=== PATIENT | male | born 1965 | race Caucasian/White ===

== ENCOUNTER 2020-02-20 23:28 | Inpatient (IN) | payer MEDICAID, OTHER ==
[~2020-02-20] VITALS: Ht 175.3 cm; Wt 133.8 kg
[2020-02-20] MEDS ORDERED: SODIUM CHLORIDE 0.9% 2,500 ML IV ONE (23:45)
[2020-02-21] VITALS (17 sets, daily range): BP systolic 78–148; BP diastolic 57–105
[2020-02-21 00:40] LABS: CHLORIDE 106 mEq/L (98-107)
[2020-02-21 00:41] LABS: INR 1.2; PROTHROMBIN TIME 12.8 sec (9.6-11.0)
[2020-02-21 00:47] LABS: CLARITY URINE CLEAR (CLEAR); COLOR URINE DARK YELLOW (YELLOW); KETONES URINE NEGATIVE (NEGATIVE); LEUKOCYTE ESTERASE URINE TRACE (NEGATIVE); NITRITE URINE NEGATIVE (NEGATIVE); OCCULT BLOOD URINE TRACE (NEGATIVE); PH URINE 5.5 (4.5-8.0); PROTEIN URINE 4+ (NEGATIVE); SPECIFIC GRAVITY URINE 1.027 (1.005-1.030)
[2020-02-21 00:57] LABS: BASOPHILS % 0.7 % (0.0-2.0); EOSINOPHILS % 5.9 % (0.0-5.0); HEMATOCRIT. 30.8 % (42.0-52.0); HEMOGLOBIN. 9.4 g/dL (14.0-18.0); LYMPHOCYTES % 11.9 % (20.0-50.0); MEAN CORPUSCULAR HEMOGLOBIN 24.9 pg (28.0-32.0); MEAN CORPUSCULAR VOLUME 81.7 fL (80.0-94.0); MEAN PLATELET VOLUME 7.6 fl (7.4-10.4); MONOCYTES % 9.8 % (2.0-8.0); NEUTROPHILS % 71.7 % (40.0-76.0); PLATELET 306 x1000/uL (130-400); RED BLOOD CELL COUNT 3.78 mill/uL (4.7-6.1)
[2020-02-21 03:39] LABS: *AMPHETAMINES SCREEN URINE NEGATIVE (NEGATIVE); *BARBITURATES SCREEN URINE NEGATIVE (NEGATIVE); *BENZODIAZEPINES SCREEN URINE NEGATIVE (NEGATIVE); *COCAINE SCREEN URINE NEGATIVE (NEGATIVE); METHADONE URINE SCREEN NEGATIVE (NEGATIVE); OPIATES URINE SCREEN NEGATIVE (NEGATIVE)
[2020-02-21 03:40] LABS: CANNABINOID URINE SCREEN PRESUMTIVE POSITIVE (NEGATIVE); PHENCYCLIDINE URINE SCREEN NEGATIVE (NEGATIVE)
[2020-02-21] MEDS ORDERED: FUROSEMIDE 100MG/10ML VIAL IVP ONE (05:15)
[2020-02-21] MEDS ORDERED: NOREPINEPHRINE 4MG/250ML PMX 250 ML IV PRN (09:30)
[2020-02-21] MEDS ORDERED: ETOMIDATE 2MG/ML 10ML VIAL IV ONE ×2 (09:45→09:54)
[2020-02-21] MEDS ORDERED: SUCCINYLCHOLINE CHLORIDE 200MG/10ML IV ONE ×2 (09:45→09:54)
[2020-02-21] MEDS ORDERED: PROPOFOL 10MG/ML 100ML 100 ML IV ONE (09:45)
[2020-02-21] MEDS ORDERED: CEFTRIAXONE 1 G PREMIX 50 ML IV SCH (11:00)
[2020-02-21] MEDS ORDERED: ENOXAPARIN 40MG/0.4ML SYR SUBCUT SCH (11:00)
[2020-02-21] MEDS: AZITHROMYCIN 500 MG TABLET PO SCH (11:00)
[2020-02-21] MEDS ORDERED: IPRATROPIUM/ALBUTEROL 0.5-3(2.5)MG/3ML NEB HHN SCH (12:00)
[2020-02-21] MEDS ORDERED: IPRATROPIUM/ALBUTEROL 0.5-3(2.5)MG/3ML NEB HHN PRN (12:00)
[2020-02-21] MEDS ORDERED: VANCOMYCIN 2,000 MG in DEXT 5% WATER 500 ML IV NR (12:00)
[2020-02-21] MEDS: ENOXAPARIN 40MG/0.4ML SYR SUBCUT SCH (12:17)
[2020-02-21 12:47] LABS: BG BASE EXCESS -3.7 mmol/L (-2.0-2.0); BG CARBOXYHEMOGLOBIN 0.7 % (0.5-1.5); BG DEOXYHEMOGLOBIN 0.3 % (0.0-5.0); BG FRACTION INSPIRED OXYGEN 100; BG HCO3 ACT 24.6 mmol/L (22.0-26.0); BG METHEMOGLOBIN 0.3 % (0.0-1.5); BG OXYGEN SATURATION 99.7 % (92.0-98.5); BG OXYHEMOGLOBIN 98.7 % (94.0-97.0); BG PCO2 61.6 mmHg (35.0-45.0); BG PH 7.219 (7.350-7.450); BG PO2 380.1 mmHg (75.0-100.0); BG SAMPLE SITE RIGHT RADIAL; BG TIDAL VOLUME(mL) 500 mL; BG TOTAL HEMOGLOBIN 10.6 g/dL (12.0-18.0); BG VENT MODE VENT - A/C; BG VENT RATE 16 set
[2020-02-21] MEDS ORDERED: NOREPINEPHRINE 4 MG in DEXT 5% WATER 246 ML IV PRN (16:00)
[2020-02-21] MEDS: PROPOFOL 10MG/ML 100ML 100 ML IV PRN (20:15)
[2020-02-22] VITALS (90 sets, daily range): BP systolic 77–142; BP diastolic 39–97
[2020-02-22] MEDS ORDERED: VANCOMYCIN 1 G PREMIX 200 ML IV SCH
[2020-02-22] MEDS: ACETYLCYSTEINE 100MG/ML 10% VIAL 4ML INH SCH ×2 (00:10→13:35)
[2020-02-22] MEDS: ENOXAPARIN 40MG/0.4ML SYR SUBCUT SCH ×3 (00:39→20:19)
[2020-02-22 05:49] LABS: HEMATOCRIT. 32.8 % (42.0-52.0); MEAN CORPUSCULAR HEMOGLOBIN 24.9 pg (28.0-32.0); MEAN CORPUSCULAR VOLUME 81.7 fL (80.0-94.0); MEAN PLATELET VOLUME 7.8 fl (7.4-10.4); PLATELET 260 x1000/uL (130-400); RED BLOOD CELL COUNT 4.02 mill/uL (4.7-6.1); RED CELL DISTRIBUTION WIDTH 19.8 % (11.6-14.6)
[2020-02-22 06:01] LABS: CHLORIDE 105 mEq/L (98-107)
[2020-02-22] MEDS: NOREPINEPHRINE 4 MG in DEXT 5% WATER 246 ML IV PRN ×2 (07:03→23:34)
[2020-02-22] MEDS: PROPOFOL 10MG/ML 100ML 100 ML IV PRN ×3 (07:04→23:31)
[2020-02-22] MEDS: AZITHROMYCIN 500 MG TABLET PO SCH (08:07)
[2020-02-22] MEDS: PANTOPRAZOLE SODIUM 40 MG/VIAL IV SCH (08:07)
[2020-02-22 09:30] LABS: BG BASE EXCESS -1.5 mmol/L (-2.0-2.0); BG CARBOXYHEMOGLOBIN 0.6 % (0.5-1.5); BG DEOXYHEMOGLOBIN 1.3 % (0.0-5.0); BG FRACTION INSPIRED OXYGEN 40; BG METHEMOGLOBIN 0.2 % (0.0-1.5); BG OXYGEN SATURATION 98.7 % (92.0-98.5); BG OXYHEMOGLOBIN 97.9 % (94.0-97.0); BG PCO2 43.6 mmHg (35.0-45.0); BG PH 7.358 (7.350-7.450); BG PO2 131.8 mmHg (75.0-100.0); BG SAMPLE SITE RIGHT RADIAL; BG TIDAL VOLUME(mL) 500 mL; BG TOTAL HEMOGLOBIN 10.6 g/dL (12.0-18.0); BG VENT MODE VENT - A/C; BG VENT RATE 18 set
[2020-02-22 09:58] LABS: PLATELET ESTIMATE NORMAL
[2020-02-22] MEDS ORDERED: VANCOMYCIN 750 MG PREMIX 150 ML IV SCH (10:00)
[2020-02-22] MEDS ORDERED: CEFTRIAXONE 1,000 MG in DEXTROSE 5% WATER 50 ML IV SCH (10:00)
[2020-02-22] MEDS ORDERED: MAGNESIUM 2 G PREMIX 50 ML IV NR (13:00)
[2020-02-22] MEDS: MIDODRINE HCL 5MG TABLET PO SCH ×2 (13:34→16:23)
[2020-02-22] MEDS: IPRATROPIUM/ALBUTEROL 0.5-3(2.5)MG/3ML NEB HHN SCH ×3 (13:35→19:50)
[2020-02-22] MEDS: PIPERACILLIN/TAZOBACTAM 3.375 G in DEXT 5% WATER 100 ML IV SCH ×2 (16:23→20:19)
[2020-02-22] MEDS: ONDANSETRON HCL 4MG/2ML INJ IV PRN (20:20)
[2020-02-23] VITALS (12 sets, daily range): BP systolic 97–111; BP diastolic 50–74
[2020-02-23] MEDS: ACETYLCYSTEINE 100MG/ML 10% VIAL 4ML INH SCH ×3 (00:05→15:57)
[2020-02-23] MEDS: IPRATROPIUM/ALBUTEROL 0.5-3(2.5)MG/3ML NEB HHN SCH ×6 (00:10→20:30)
[2020-02-23] MEDS: PIPERACILLIN/TAZOBACTAM 3.375 G in DEXT 5% WATER 100 ML IV SCH ×4 (03:20→21:49)
[2020-02-23] MEDS: PROPOFOL 10MG/ML 100ML 100 ML IV PRN ×4 (03:37→21:52)
[2020-02-23 05:54] LABS: BASOPHILS % 0.7 % (0.0-2.0); EOSINOPHILS % 5.5 % (0.0-5.0); HEMATOCRIT. 28.6 % (42.0-52.0); HEMOGLOBIN. 9.1 g/dL (14.0-18.0); LYMPHOCYTES % 8.9 % (20.0-50.0); MEAN CORPUSCULAR HEMOGLOBIN 25.2 pg (28.0-32.0); MEAN CORPUSCULAR VOLUME 79.5 fL (80.0-94.0); MEAN PLATELET VOLUME 8.1 fl (7.4-10.4); MONOCYTES % 9.4 % (2.0-8.0); NEUTROPHILS % 75.5 % (40.0-76.0); PLATELET 297 x1000/uL (130-400); RED BLOOD CELL COUNT 3.59 mill/uL (4.7-6.1); RED CELL DISTRIBUTION WIDTH 20.1 % (11.6-14.6)
[2020-02-23] MEDS ORDERED: VANCOMYCIN 1,750 MG in DEXT 5% WATER 500 ML IV SCH (09:00)
[2020-02-23 09:27] LABS: BG BASE EXCESS -0.6 mmol/L (-2.0-2.0); BG CARBOXYHEMOGLOBIN 0.4 % (0.5-1.5); BG DEOXYHEMOGLOBIN 1.2 % (0.0-5.0); BG FRACTION INSPIRED OXYGEN 40; BG HCO3 ACT 23.8 mmol/L (22.0-26.0); BG METHEMOGLOBIN 0.4 % (0.0-1.5); BG OXYGEN SATURATION 98.8 % (92.0-98.5); BG PCO2 38.1 mmHg (35.0-45.0); BG PH 7.414 (7.350-7.450); BG PO2 140.5 mmHg (75.0-100.0); BG SAMPLE SITE LEFT RADIAL; BG TIDAL VOLUME(mL) 500 mL; BG TOTAL HEMOGLOBIN 9.3 g/dL (12.0-18.0); BG VENT MODE VENT - A/C; BG VENT RATE 18 set
[2020-02-23] MEDS: PANTOPRAZOLE SODIUM 40 MG/VIAL IV SCH (09:28)
[2020-02-23] MEDS: ENOXAPARIN 40MG/0.4ML SYR SUBCUT SCH ×2 (09:32→21:48)
[2020-02-23] MEDS: MIDODRINE HCL 5MG TABLET PO SCH ×3 (09:33→17:00)
[2020-02-23] MEDS: AZITHROMYCIN 500 MG TABLET PO SCH (09:33)
[2020-02-23] MEDS: FUROSEMIDE 40MG/4ML VIAL IVP SCH (12:56)
[2020-02-23] MEDS: NYSTATIN POWDER 15GM TOP SCH (21:48)
[2020-02-23] MEDS: ONDANSETRON HCL 4MG/2ML INJ IV PRN (21:53)
[2020-02-24] VITALS (60 sets, daily range): BP systolic 69–134; BP diastolic 24–73
[2020-02-24] MEDS: IPRATROPIUM/ALBUTEROL 0.5-3(2.5)MG/3ML NEB HHN SCH ×6 (00:05→22:01)
[2020-02-24] MEDS: PIPERACILLIN/TAZOBACTAM 3.375 G in DEXT 5% WATER 100 ML IV SCH ×4 (03:36→21:12)
[2020-02-24] MEDS: PROPOFOL 10MG/ML 100ML 100 ML IV PRN ×4 (03:41→21:14)
[2020-02-24] MEDS ORDERED: MAGNESIUM 2 G PREMIX 50 ML IV NR (05:00)
[2020-02-24 05:51] LABS: BASOPHILS % 1.1 % (0.0-2.0); EOSINOPHILS % 4.1 % (0.0-5.0); HEMATOCRIT. 29.3 % (42.0-52.0); HEMOGLOBIN. 9.2 g/dL (14.0-18.0); LYMPHOCYTES % 10.8 % (20.0-50.0); MEAN CORPUSCULAR HEMOGLOBIN 24.5 pg (28.0-32.0); MEAN CORPUSCULAR VOLUME 78.3 fL (80.0-94.0); MEAN PLATELET VOLUME 7.8 fl (7.4-10.4); MONOCYTES % 10.8 % (2.0-8.0); NEUTROPHILS % 73.2 % (40.0-76.0); PLATELET 279 x1000/uL (130-400); RED BLOOD CELL COUNT 3.74 mill/uL (4.7-6.1); RED CELL DISTRIBUTION WIDTH 19.9 % (11.6-14.6)
[2020-02-24] MEDS: ACETYLCYSTEINE 100MG/ML 10% VIAL 4ML INH SCH ×2 (08:31→16:30)
[2020-02-24] MEDS: PANTOPRAZOLE SODIUM 40 MG/VIAL IV SCH (08:38)
[2020-02-24] MEDS: FUROSEMIDE 40MG/4ML VIAL IVP SCH (08:38)
[2020-02-24] MEDS: AZITHROMYCIN 500 MG TABLET PO SCH (08:39)
[2020-02-24] MEDS: MIDODRINE HCL 5MG TABLET PO SCH ×3 (08:39→17:35)
[2020-02-24] MEDS: ENOXAPARIN 40MG/0.4ML SYR SUBCUT SCH ×2 (08:39→21:12)
[2020-02-24] MEDS: NOREPINEPHRINE 4 MG in DEXT 5% WATER 246 ML IV PRN (08:46)
[2020-02-24 08:55] LABS: BG BASE EXCESS 1.1 mmol/L (-2.0-2.0); BG CARBOXYHEMOGLOBIN 0.4 % (0.5-1.5); BG FRACTION INSPIRED OXYGEN 40; BG HCO3 ACT 24.6 mmol/L (22.0-26.0); BG METHEMOGLOBIN 0.2 % (0.0-1.5); BG OXYHEMOGLOBIN 98.4 % (94.0-97.0); BG PCO2 34.7 mmHg (35.0-45.0); BG PH 7.469 (7.350-7.450); BG PO2 141.3 mmHg (75.0-100.0); BG SAMPLE SITE RIGHT RADIAL; BG TIDAL VOLUME(mL) 500 mL; BG VENT MODE VENT - A/C; BG VENT RATE 18 set
[2020-02-24] MEDS ORDERED: FLUCONAZOLE 200 MG/100 ML IV SCH (10:45)
[2020-02-24] MEDS ORDERED: PERMETHRIN 5% CREAM 60GM TOP NR (11:00)
[2020-02-24] MEDS: METOCLOPRAMIDE HCL 10MG/2ML VIAL IV SCH ×2 (12:25→17:35)
[2020-02-24] MEDS ORDERED: FLUCONAZOLE 100MG/50ML in BAG IV SCH (13:00)
[2020-02-24] MEDS: NYSTATIN POWDER 15GM TOP SCH ×2 (15:16→21:00)
[2020-02-24] MEDS ORDERED: CALCIUM GLUCONATE 100MG/ML 10ML VIAL IV NR (15:30)
[2020-02-24] MEDS ORDERED: CALCIUM GLUCONATE 1,000 MG in DEXT 5% WATER 90 ML IV ONE (17:30)
[2020-02-25] VITALS (72 sets, daily range): BP systolic 80–129; BP diastolic 55–86
[2020-02-25] MEDS: METOCLOPRAMIDE HCL 10MG/2ML VIAL IV SCH ×5 (00:25→23:28)
[2020-02-25] MEDS: ACETYLCYSTEINE 100MG/ML 10% VIAL 4ML INH SCH ×4 (00:41→16:23)
[2020-02-25] MEDS: IPRATROPIUM/ALBUTEROL 0.5-3(2.5)MG/3ML NEB HHN SCH ×6 (01:03→20:06)
[2020-02-25] MEDS: PROPOFOL 10MG/ML 100ML 100 ML IV PRN ×3 (05:21→17:06)
[2020-02-25] MEDS: PIPERACILLIN/TAZOBACTAM 3.375 G in DEXT 5% WATER 100 ML IV SCH ×4 (05:22→21:40)
[2020-02-25 06:41] LABS: BASOPHILS % 1.7 % (0.0-2.0); EOSINOPHILS % 7.9 % (0.0-5.0); HEMATOCRIT. 27.2 % (42.0-52.0); HEMOGLOBIN. 8.6 g/dL (14.0-18.0); LYMPHOCYTES % 14.3 % (20.0-50.0); MEAN CORPUSCULAR HEMOGLOBIN 24.8 pg (28.0-32.0); MEAN CORPUSCULAR VOLUME 78.2 fL (80.0-94.0); MEAN PLATELET VOLUME 7.8 fl (7.4-10.4); MONOCYTES % 11.6 % (2.0-8.0); NEUTROPHILS % 64.5 % (40.0-76.0); PLATELET 295 x1000/uL (130-400); RED BLOOD CELL COUNT 3.48 mill/uL (4.7-6.1); RED CELL DISTRIBUTION WIDTH 19.2 % (11.6-14.6)
[2020-02-25] MEDS: FUROSEMIDE 40MG/4ML VIAL IVP SCH (09:04)
[2020-02-25] MEDS: PANTOPRAZOLE SODIUM 40 MG/VIAL IV SCH (09:04)
[2020-02-25] MEDS: ENOXAPARIN 40MG/0.4ML SYR SUBCUT SCH ×2 (09:05→20:37)
[2020-02-25] MEDS: MIDODRINE HCL 5MG TABLET PO SCH ×3 (09:05→16:40)
[2020-02-25] MEDS: NYSTATIN POWDER 15GM TOP SCH ×2 (09:06→20:38)
[2020-02-25] MEDS ORDERED: VANCOMYCIN 1500MG in DEXTROSE 5% WATER 250ML IV SCH (11:00)
[2020-02-25] MEDS: NOREPINEPHRINE 4 MG in DEXT 5% WATER 246 ML IV PRN (11:03)
[2020-02-25 11:45] LABS: BG CARBOXYHEMOGLOBIN 0.3 % (0.5-1.5); BG DEOXYHEMOGLOBIN 1.6 % (0.0-5.0); BG FRACTION INSPIRED OXYGEN 30; BG HCO3 ACT 29.5 mmol/L (22.0-26.0); BG METHEMOGLOBIN 0.3 % (0.0-1.5); BG OXYGEN SATURATION 98.4 % (92.0-98.5); BG OXYHEMOGLOBIN 97.8 % (94.0-97.0); BG PCO2 48.2 mmHg (35.0-45.0); BG PH 7.404 (7.350-7.450); BG PO2 127.8 mmHg (75.0-100.0); BG SAMPLE SITE LEFT RADIAL; BG TIDAL VOLUME(mL) 500 mL; BG TOTAL HEMOGLOBIN 10.6 g/dL (12.0-18.0); BG VENT MODE VENT - A/C; BG VENT RATE 14 set
[2020-02-25] MEDS ORDERED: FLUCONAZOLE 200 MG/100ML BAG 100 ML IV SCH (13:00)
[2020-02-25] MEDS ORDERED: SODIUM CHLORIDE 0.9% 500 ML IV SCH (13:45)
[2020-02-25] MEDS ORDERED: ACETAZOLAMIDE SODIUM 500MG/VIAL IV NR (15:00)
[2020-02-26] VITALS (47 sets, daily range): BP systolic 81–115; BP diastolic 50–90
[2020-02-26] MEDS: IPRATROPIUM/ALBUTEROL 0.5-3(2.5)MG/3ML NEB HHN SCH ×5 (00:41→16:26)
[2020-02-26] MEDS: PIPERACILLIN/TAZOBACTAM 3.375 G in DEXT 5% WATER 100 ML IV SCH ×4 (03:20→21:05)
[2020-02-26] MEDS: PROPOFOL 10MG/ML 100ML 100 ML IV PRN (03:30)
[2020-02-26] MEDS: METOCLOPRAMIDE HCL 10MG/2ML VIAL IV SCH ×4 (05:04→23:38)
[2020-02-26 06:21] LABS: BASOPHILS % 1.9 % (0.0-2.0); EOSINOPHILS % 7.5 % (0.0-5.0); HEMATOCRIT. 31.9 % (42.0-52.0); HEMOGLOBIN. 10.2 g/dL (14.0-18.0); MEAN CORPUSCULAR HEMOGLOBIN 25.1 pg (28.0-32.0); MEAN CORPUSCULAR VOLUME 78.1 fL (80.0-94.0); MEAN PLATELET VOLUME 8.1 fl (7.4-10.4); MONOCYTES % 13.3 % (2.0-8.0); NEUTROPHILS % 55.3 % (40.0-76.0); PLATELET 184 x1000/uL (130-400); RED BLOOD CELL COUNT 4.09 mill/uL (4.7-6.1); RED CELL DISTRIBUTION WIDTH 20.1 % (11.6-14.6)
[2020-02-26] MEDS: ACETYLCYSTEINE 100MG/ML 10% VIAL 4ML INH SCH ×2 (08:26→16:26)
[2020-02-26] MEDS: PANTOPRAZOLE SODIUM 40 MG/VIAL IV SCH (09:00)
[2020-02-26] MEDS: ENOXAPARIN 40MG/0.4ML SYR SUBCUT SCH ×2 (09:00→21:05)
[2020-02-26] MEDS: NYSTATIN POWDER 15GM TOP SCH ×2 (09:00→21:06)
[2020-02-26] MEDS: FUROSEMIDE 40MG/4ML VIAL IVP SCH (09:00)
[2020-02-26] MEDS: MIDODRINE HCL 5MG TABLET PO SCH ×3 (09:00→17:41)
[2020-02-26 12:15] LABS: BG CARBOXYHEMOGLOBIN 0.4 % (0.5-1.5); BG DEOXYHEMOGLOBIN 1.5 % (0.0-5.0); BG FRACTION INSPIRED OXYGEN 30; BG HCO3 ACT 31.2 mmol/L (22.0-26.0); BG METHEMOGLOBIN 0.3 % (0.0-1.5); BG OXYGEN SATURATION 98.5 % (92.0-98.5); BG OXYHEMOGLOBIN 97.8 % (94.0-97.0); BG PCO2 48.6 mmHg (35.0-45.0); BG PH 7.425 (7.350-7.450); BG PO2 131.5 mmHg (75.0-100.0); BG PRESSURE SUPPORT 8; BG SAMPLE SITE LEFT RADIAL; BG TOTAL HEMOGLOBIN 9.5 g/dL (12.0-18.0); BG VENT MODE VENT - CPAP
[2020-02-27] VITALS (35 sets, daily range): BP systolic 83–134; BP diastolic 44–85
[2020-02-27] MEDS: IPRATROPIUM/ALBUTEROL 0.5-3(2.5)MG/3ML NEB HHN SCH ×5 (00:22→21:30)
[2020-02-27] MEDS: ACETYLCYSTEINE 100MG/ML 10% VIAL 4ML INH SCH ×2 (00:22→09:05)
[2020-02-27] MEDS: PIPERACILLIN/TAZOBACTAM 3.375 G in DEXT 5% WATER 100 ML IV SCH ×4 (04:24→21:19)
[2020-02-27] MEDS: METOCLOPRAMIDE HCL 10MG/2ML VIAL IV SCH ×3 (05:30→18:06)
[2020-02-27 05:47] LABS: EOSINOPHILS % 13.2 % (0.0-5.0); HEMATOCRIT. 27.4 % (42.0-52.0); HEMOGLOBIN. 8.4 g/dL (14.0-18.0); LYMPHOCYTES % 18.6 % (20.0-50.0); MEAN CORPUSCULAR HEMOGLOBIN 24.3 pg (28.0-32.0); MEAN CORPUSCULAR VOLUME 79.1 fL (80.0-94.0); MEAN PLATELET VOLUME 7.7 fl (7.4-10.4); MONOCYTES % 14.8 % (2.0-8.0); NEUTROPHILS % 52.4 % (40.0-76.0); PLATELET 220 x1000/uL (130-400); RED BLOOD CELL COUNT 3.46 mill/uL (4.7-6.1); RED CELL DISTRIBUTION WIDTH 19.9 % (11.6-14.6)
[2020-02-27] MEDS: FUROSEMIDE 40MG/4ML VIAL IVP SCH (09:26)
[2020-02-27] MEDS: ENOXAPARIN 40MG/0.4ML SYR SUBCUT SCH ×2 (09:27→21:18)
[2020-02-27] MEDS: PANTOPRAZOLE SODIUM 40 MG/VIAL IV SCH (09:27)
[2020-02-27] MEDS: MIDODRINE HCL 5MG TABLET PO SCH ×3 (09:28→18:07)
[2020-02-27] MEDS: NYSTATIN POWDER 15GM TOP SCH ×2 (09:58→21:19)
[2020-02-28] VITALS (13 sets, daily range): BP systolic 92–121; BP diastolic 47–75
[2020-02-28] MEDS: METOCLOPRAMIDE HCL 10MG/2ML VIAL IV SCH ×5 (00:54→23:40)
[2020-02-28] MEDS: IPRATROPIUM/ALBUTEROL 0.5-3(2.5)MG/3ML NEB HHN SCH ×6 (00:55→20:37)
[2020-02-28 06:39] LABS: BASOPHILS % 1.3 % (0.0-2.0); EOSINOPHILS % 11.1 % (0.0-5.0); HEMOGLOBIN. 8.7 g/dL (14.0-18.0); LYMPHOCYTES % 17.6 % (20.0-50.0); MEAN CORPUSCULAR HEMOGLOBIN 24.4 pg (28.0-32.0); MEAN CORPUSCULAR VOLUME 78.9 fL (80.0-94.0); MEAN PLATELET VOLUME 7.8 fl (7.4-10.4); MONOCYTES % 12.1 % (2.0-8.0); NEUTROPHILS % 57.9 % (40.0-76.0); PLATELET 209 x1000/uL (130-400); RED BLOOD CELL COUNT 3.55 mill/uL (4.7-6.1); RED CELL DISTRIBUTION WIDTH 20.2 % (11.6-14.6)
[2020-02-28] MEDS ORDERED: POTASSIUM CHLORIDE 20MEQ TABLET SR PO SCH (08:45)
[2020-02-28] MEDS: ENOXAPARIN 40MG/0.4ML SYR SUBCUT SCH ×2 (09:41→20:39)
[2020-02-28] MEDS: PANTOPRAZOLE SODIUM 40 MG/VIAL IV SCH (09:41)
[2020-02-28] MEDS: MIDODRINE HCL 5MG TABLET PO SCH ×3 (09:42→17:06)
[2020-02-28] MEDS: NYSTATIN POWDER 15GM TOP SCH ×2 (09:53→20:39)
[2020-02-28] MEDS ORDERED: VANCOMYCIN 1 G PREMIX 200 ML IV SCH (11:00)
[2020-02-29] VITALS (10 sets, daily range): BP systolic 96–132; BP diastolic 56–80
[2020-02-29] MEDS: IPRATROPIUM/ALBUTEROL 0.5-3(2.5)MG/3ML NEB HHN SCH ×6 (00:23→23:50)
[2020-02-29] MEDS: METOCLOPRAMIDE HCL 10MG/2ML VIAL IV SCH ×2 (05:07→12:09)
[2020-02-29 07:38] LABS: BASOPHILS % 0.8 % (0.0-2.0); EOSINOPHILS % 9.4 % (0.0-5.0); HEMATOCRIT. 28.3 % (42.0-52.0); HEMOGLOBIN. 8.7 g/dL (14.0-18.0); LYMPHOCYTES % 21.3 % (20.0-50.0); MEAN CORPUSCULAR HEMOGLOBIN 24.5 pg (28.0-32.0); MEAN CORPUSCULAR VOLUME 79.3 fL (80.0-94.0); MEAN PLATELET VOLUME 8.1 fl (7.4-10.4); MONOCYTES % 10.3 % (2.0-8.0); NEUTROPHILS % 58.2 % (40.0-76.0); PLATELET 237 x1000/uL (130-400); RED BLOOD CELL COUNT 3.57 mill/uL (4.7-6.1); RED CELL DISTRIBUTION WIDTH 20.1 % (11.6-14.6)
[2020-02-29] MEDS: PANTOPRAZOLE SODIUM 40 MG/VIAL IV SCH (08:12)
[2020-02-29] MEDS: MIDODRINE HCL 5MG TABLET PO SCH ×2 (08:13→12:12)
[2020-02-29] MEDS: ENOXAPARIN 40MG/0.4ML SYR SUBCUT SCH ×2 (08:14→21:15)
[2020-02-29] MEDS: NYSTATIN POWDER 15GM TOP SCH ×2 (08:15→21:15)
[2020-02-29] MEDS: ACETAMINOPHEN 325MG TABLET PO PRN (12:12)
[2020-02-29] MEDS ORDERED: CARV6.2548 MT (16:33)
[2020-02-29] MEDS ORDERED: LOSA25TA26 MT (16:33)
[2020-02-29] MEDS ORDERED: FURO-152 MT (16:33)
[2020-02-29] MEDS ORDERED: ALBU18HF2 IH (16:33)
[2020-02-29] MEDS: FERROUS SULFATE 325MG TABLET PO SCH (17:37)
[2020-02-29 17:38] LABS: TOTAL IRON BINDING CAPACITY 316 ug/dL (250-450)
[2020-02-29] MEDS: CARVEDILOL 6.25 MG TABLET PO SCH (21:14)
[2020-03-01] VITALS (11 sets, daily range): BP systolic 103–136; BP diastolic 18–75
[2020-03-01] MEDS: ACETAMINOPHEN 325MG TABLET PO PRN ×4 (01:12→21:24)
[2020-03-01] MEDS: CARVEDILOL 6.25 MG TABLET PO SCH ×2 (08:37→21:24)
[2020-03-01] MEDS: DOCUSATE SODIUM 250MG CAPSULE PO SCH (08:37)
[2020-03-01] MEDS: LOSARTAN POTASSIUM 25 MG TABLET PO SCH (08:37)
[2020-03-01] MEDS: FERROUS SULFATE 325MG TABLET PO SCH ×3 (08:38→18:29)
[2020-03-01] MEDS: NYSTATIN POWDER 15GM TOP SCH ×2 (08:38→21:25)
[2020-03-01] MEDS: ENOXAPARIN 40MG/0.4ML SYR SUBCUT SCH ×2 (08:38→21:25)
[2020-03-01] MEDS: PANTOPRAZOLE SODIUM 40 MG/VIAL IV SCH (08:38)
[2020-03-01] MEDS: IPRATROPIUM/ALBUTEROL 0.5-3(2.5)MG/3ML NEB HHN SCH ×2 (09:00→16:05)
[2020-03-02] VITALS (9 sets, daily range): BP systolic 119–144; BP diastolic 63–89
[2020-03-02] MEDS: IPRATROPIUM/ALBUTEROL 0.5-3(2.5)MG/3ML NEB HHN SCH ×3 (00:30→12:49)
[2020-03-02] MEDS: CARVEDILOL 6.25 MG TABLET PO SCH (09:31)
[2020-03-02] MEDS: FERROUS SULFATE 325MG TABLET PO SCH ×2 (09:31→13:19)
[2020-03-02] MEDS: ENOXAPARIN 40MG/0.4ML SYR SUBCUT SCH (09:31)
[2020-03-02] MEDS: DOCUSATE SODIUM 250MG CAPSULE PO SCH (09:32)
[2020-03-02] MEDS: LOSARTAN POTASSIUM 25 MG TABLET PO SCH (09:32)
[2020-03-02] MEDS: PANTOPRAZOLE SODIUM 40 MG/VIAL IV SCH (09:34)
[2020-03-02] MEDS: ACETAMINOPHEN 325MG TABLET PO PRN (09:40)
[2020-03-02] MEDS: NYSTATIN POWDER 15GM TOP SCH (11:03)
[2020-03-02] MEDS ORDERED: CARVEDILOL 12.5MG TABLET PO SCH (21:00)
== END 2020-03-02 19:15 | DRG 812 ==
LOC: ER 23:28 → MICUSO 02-21 04:29 → EDBEDREQ 02-21 04:30 → EDBEDREQDT 02-21 04:30 → EDBEDREQSVC 02-21 04:30 → EDBEDREQTM 02-21 04:30 → ENRESERV 02-21 07:29 → EDBEDREQTM 02-21 10:10 → EDBEDREQ 02-21 10:10 → EDBEDREQSVC 02-21 10:10 → ENRESERV 02-21 17:16 → CVICU 02-24 05:00 → 5EST 02-27 17:19
PROVIDERS: ADMIT Internal Medicine; ATTEND Internal Medicine
PROC: 5A1955Z Respiratory Ventilation, Greater than 96 Consecutive Hours (ICD-10-PCS; principal; 2020-02-21)
PROC: 0BH17EZ Insertion of Endotracheal Airway into Trachea, Via Natural or Artificial Opening (ICD-10-PCS; 2020-02-21)
PROC: 06HY33Z Insertion of Infusion Device into Lower Vein, Percutaneous Approach (ICD-10-PCS; 2020-02-21)
PROC: B54BZZA Ultrasonography of Right Lower Extremity Veins, Guidance (ICD-10-PCS; 2020-02-21)
DX: T39.311A Poisoning by propionic acid derivatives, accidental (unintentional), initial encounter (principal); A41.02 Sepsis due to Methicillin resistant Staphylococcus aureus; R65.21 Severe sepsis with septic shock; E43 Unspecified severe protein-calorie malnutrition; J96.02 Acute respiratory failure with hypercapnia; I50.43 Acute on chronic combined systolic (congestive) and diastolic (congestive) heart failure; J15.212 Pneumonia due to Methicillin resistant Staphylococcus aureus; J69.0 Pneumonitis due to inhalation of food and vomit; N17.9 Acute kidney failure, unspecified; N18.2 Chronic kidney disease, stage 2 (mild); G92 Toxic encephalopathy; E11.22 Type 2 diabetes mellitus with diabetic chronic kidney disease; D64.9 Anemia, unspecified; E66.01 Morbid (severe) obesity due to excess calories; E87.4 Mixed disorder of acid-base balance; Z96.611 Presence of right artificial shoulder joint; D72.1 Eosinophilia; B86 Scabies; F12.90 Cannabis use, unspecified, uncomplicated; Z20.828 Contact with and (suspected) exposure to other viral communicable diseases; I27.20 Pulmonary hypertension, unspecified; I36.1 Nonrheumatic tricuspid (valve) insufficiency; I13.0 Hypertensive heart and chronic kidney disease with heart failure and stage 1 through stage 4 chronic kidney disease, or unspecified chronic kidney disease; S43.004A Unspecified dislocation of right shoulder joint, initial encounter; X58.XXXA Exposure to other specified factors, initial encounter; I42.9 Cardiomyopathy, unspecified; T50.2X5A Adverse effect of carbonic-anhydrase inhibitors, benzothiadiazides and other diuretics, initial encounter; Z68.41 Body mass index [BMI] 40.0-44.9, adult; Z78.1 Physical restraint status; Y92.89 Other specified places as the place of occurrence of the external cause; Y93.89 Activity, other specified; Y99.8 Other external cause status
CPT/HCPCS: 36415; 36600; 71045; 73030; 80048; 80053; 80061; 80202; 80305; 80307; 80320; 80329; 81003; 82040; 82375; 82550; 82728; 82805; 82962; 83036; 83540; 83550; 83605; 83735; 83880; 84134; 84145; 84439; 84443; 84450; 84460; 84478; 84484; 85025; 85651; 86140; 87070; 87077; 92610; 93005; 93306; 94002; 94003; 94640; 97162; 97166; 97530; 99285; C9113; J0330; J0610; J0696; J1120; J1450; J1650; J1940; J2405; J2543; J2704; J2765; J3370; J3475; J3490; J7030; J7060; J7608; C9803-CS; G0480; U0003-CS

== ENCOUNTER 2020-07-06 21:02 | Inpatient (IN) | payer MEDICAID ==
[~2020-07-06] VITALS: Ht 177.8 cm; Wt 96.6 kg
[~2020-07-06 21:02] MED LIST: ALBU18HF2 IH; CARV6.2548 MT; FURO-152 MT; LOSA25TA26 MT
[2020-07-06] MEDS ORDERED: SODIUM CHLORIDE 0.9% 1,000 ML IV ONE ×2 (21:30→23:15)
[2020-07-06 22:34] LABS: BASOPHILS % 0.3 % (0.0-2.0); EOSINOPHILS % 1.2 % (0.0-5.0); HEMATOCRIT. 38.6 % (42.0-52.0); HEMOGLOBIN. 13.3 g/dL (14.0-18.0); LYMPHOCYTES % 9.7 % (20.0-50.0); MEAN CORPUSCULAR HEMOGLOBIN 32.2 pg (28.0-32.0); MEAN CORPUSCULAR VOLUME 93.7 fL (80.0-94.0); MONOCYTES % 11.7 % (2.0-8.0); NEUTROPHILS % 77.1 % (40.0-76.0); RED BLOOD CELL COUNT 4.12 mill/uL (4.7-6.1)
[2020-07-06 22:39] LABS: CHLORIDE 96 mEq/L (98-107)
[2020-07-06 22:54] LABS: PLATELET ESTIMATE NORMAL
[2020-07-06 22:55] LABS: MEAN PLATELET VOLUME 7.2 fl (7.4-10.4); PLATELET 163 x1000/uL (130-400)
[2020-07-07 00:50] LABS: CLARITY URINE CLEAR (CLEAR); COLOR URINE YELLOW (YELLOW); KETONES URINE NEGATIVE (NEGATIVE); LEUKOCYTE ESTERASE URINE TRACE (NEGATIVE); NITRITE URINE NEGATIVE (NEGATIVE); OCCULT BLOOD URINE NEGATIVE (NEGATIVE); PH URINE 5.5 (4.5-8.0); PROTEIN URINE 2+ (NEGATIVE); SPECIFIC GRAVITY URINE 1.017 (1.005-1.030)
[2020-07-07] MEDS ORDERED: CLONIDINE 0.1MG TABLET PO PRN (02:45)
[2020-07-07] MEDS ORDERED: ACETAMINOPHEN 325MG TABLET PO PRN ×2 (02:45)
[2020-07-07] MEDS ORDERED: DIPHENHYDRAMINE 50MG/ML VIAL IV PRN (02:45)
[2020-07-07] MEDS ORDERED: MAGNESIUM/ALUMINUM HYDROXIDE/SIMETHICONE 30ML UDC PO PRN (02:45)
[2020-07-07] MEDS ORDERED: CEFTRIAXONE 1 G PREMIX 50 ML IV SCH ×2 (03:00→21:00)
[2020-07-07] MEDS: SODIUM CHLORIDE 0.9% 1,000 ML IV SCH (03:21)
[2020-07-07] MEDS: PANTOPRAZOLE SODIUM 40 MG/VIAL IV SCH (10:56)
[2020-07-07] MEDS: ENOXAPARIN 40MG/0.4ML SYR SUBCUT SCH (11:12)
[2020-07-07] MEDS ORDERED: AZITHROMYCIN 500 MG in DEXT 5% WATER 250 ML IV SCH (12:00)
[2020-07-07] MEDS ORDERED: CARV12.545 MT (12:43)
[2020-07-07] MEDS ORDERED: GABA-531 MT (12:43)
[2020-07-07] MEDS ORDERED: RISP0.2514 PO (12:43)
[2020-07-07] MEDS ORDERED: ZOLP5TAB2 MT (12:43)
[2020-07-07] MEDS ORDERED: LORA-250 MT (12:43)
[2020-07-07] MEDS ORDERED: INTE30SY IM (12:43)
[2020-07-07] MEDS ORDERED: SENN-170 MT (12:43)
[2020-07-07] MEDS ORDERED: DULO30CA52 MT (12:43)
[2020-07-07] MEDS: HYDROCODONE/ACETAMINOPHEN 5/325MG TABLET PO PRN ×2 (13:07→23:13)
[2020-07-07] MEDS ORDERED: ZOLPIDEM TARTRATE 5MG TABLET PO PRN (21:00)
[2020-07-07 21:50] VITALS: BP 121/66
[2020-07-08 01:30] VITALS: BP 122/60
[2020-07-08] MEDS: SODIUM CHLORIDE 0.9% 1,000 ML IV SCH ×2 (01:34→18:05)
[2020-07-08 04:00] VITALS: BP 146/80
[2020-07-08 06:26] LABS: CHLORIDE 105 mEq/L (98-107)
[2020-07-08 06:30] LABS: BASOPHILS % 0.3 % (0.0-2.0); EOSINOPHILS % 1.3 % (0.0-5.0); HEMATOCRIT. 33.3 % (42.0-52.0); HEMOGLOBIN. 11.4 g/dL (14.0-18.0); LYMPHOCYTES % 20.1 % (20.0-50.0); MEAN CORPUSCULAR HEMOGLOBIN 32.1 pg (28.0-32.0); MONOCYTES % 14.3 % (2.0-8.0); PLATELET 116 x1000/uL (130-400); RED BLOOD CELL COUNT 3.55 mill/uL (4.7-6.1); RED CELL DISTRIBUTION WIDTH 16.2 % (11.6-14.6)
[2020-07-08 06:34] LABS: PHOSPHORUS 2.5 mg/dL (2.5-4.9)
[2020-07-08 08:00] VITALS: BP 133/68
[2020-07-08] MEDS: ENOXAPARIN 40MG/0.4ML SYR SUBCUT SCH (09:00)
[2020-07-08] MEDS: PANTOPRAZOLE SODIUM 40 MG/VIAL IV SCH (09:24)
[2020-07-08] MEDS: HYDROCODONE/ACETAMINOPHEN 5/325MG TABLET PO PRN ×3 (09:31→21:48)
[2020-07-08] MEDS: ONDANSETRON HCL 4MG/2ML INJ IV PRN (09:31)
[2020-07-08 12:00] VITALS: BP 117/62
[2020-07-08] MEDS: AZITHROMYCIN 500 MG in DEXT 5% WATER 250 ML IV SCH (15:53)
[2020-07-08 16:00] VITALS: BP 138/69
[2020-07-08] MEDS: CEFTRIAXONE 1,000 MG in DEXTROSE 5% WATER 50 ML IV SCH (17:39)
[2020-07-08 20:00] VITALS: BP_SYST 108; BP_SYST 121; BP_DIAS 54; BP_DIAS 63
[2020-07-09] VITALS: BP 124/69
[2020-07-09 04:00] VITALS: BP 119/54
[2020-07-09] MEDS: HYDROCODONE/ACETAMINOPHEN 5/325MG TABLET PO PRN ×3 (04:47→18:08)
[2020-07-09] MEDS: ONDANSETRON HCL 4MG/2ML INJ IV PRN ×3 (05:09→22:11)
[2020-07-09 08:00] VITALS: BP 133/74
[2020-07-09] MEDS ORDERED: MAGNESIUM 2 G PREMIX 50 ML IV NR (09:00)
[2020-07-09] MEDS: PANTOPRAZOLE SODIUM 40 MG/VIAL IV SCH (10:49)
[2020-07-09 12:00] VITALS: BP 127/72
[2020-07-09 16:00] VITALS: BP 120/66
[2020-07-09] MEDS: SODIUM CHLORIDE 0.9% 1,000 ML IV SCH (16:24)
[2020-07-09] MEDS: AZITHROMYCIN 500 MG in DEXT 5% WATER 250 ML IV SCH (16:24)
[2020-07-09] MEDS: CEFTRIAXONE 1,000 MG in DEXTROSE 5% WATER 50 ML IV SCH (16:25)
[2020-07-09 20:00] VITALS: BP 136/75
[2020-07-10] VITALS: BP 127/65
[2020-07-10] MEDS: ONDANSETRON HCL 4MG/2ML INJ IV PRN ×4 (03:56→20:28)
[2020-07-10 04:00] VITALS: BP 140/72
[2020-07-10] MEDS ORDERED: METOCLOPRAMIDE HCL 10MG/2ML VIAL IV PRN (07:30)
[2020-07-10 08:00] VITALS: BP 122/67
[2020-07-10] MEDS ORDERED: FAMOTIDINE 20MG/2ML VIAL IV SCH (09:00)
[2020-07-10] MEDS: HYDROCODONE/ACETAMINOPHEN 5/325MG TABLET PO PRN ×2 (09:26→20:28)
[2020-07-10] MEDS: SODIUM CHLORIDE 0.9% 1,000 ML IV SCH ×2 (11:48→18:05)
[2020-07-10 12:00] VITALS: BP 119/62
[2020-07-10 16:00] VITALS: BP 126/65
[2020-07-10] MEDS ORDERED: PANTOPRAZOLE SODIUM 40 MG/VIAL IV ONE (17:30)
[2020-07-10] MEDS: CEFTRIAXONE 1,000 MG in DEXTROSE 5% WATER 50 ML IV SCH (18:04)
[2020-07-10 20:00] VITALS: BP 124/70
[2020-07-11] VITALS (7 sets, daily range): BP systolic 116–154; BP diastolic 67–77
[2020-07-11] MEDS: HYDROCODONE/ACETAMINOPHEN 5/325MG TABLET PO PRN ×4 (05:01→22:15)
[2020-07-11] MEDS: ONDANSETRON HCL 4MG/2ML INJ IV PRN (05:30)
[2020-07-11] MEDS: SODIUM CHLORIDE 0.9% 1,000 ML IV SCH (05:34)
[2020-07-11 07:50] LABS: BASOPHILS % 0.5 % (0.0-2.0); EOSINOPHILS % 1.4 % (0.0-5.0); HEMATOCRIT. 31.9 % (42.0-52.0); LYMPHOCYTES % 18.8 % (20.0-50.0); MEAN CORPUSCULAR VOLUME 93.1 fL (80.0-94.0); MEAN PLATELET VOLUME 7.4 fl (7.4-10.4); MONOCYTES % 12.4 % (2.0-8.0); NEUTROPHILS % 66.9 % (40.0-76.0); PLATELET 111 x1000/uL (130-400); RED BLOOD CELL COUNT 3.43 mill/uL (4.7-6.1); RED CELL DISTRIBUTION WIDTH 15.7 % (11.6-14.6)
[2020-07-11 08:06] LABS: CHLORIDE 98 mEq/L (98-107)
[2020-07-11] MEDS ORDERED: PANTOPRAZOLE SODIUM 40 MG/VIAL IV SCH (09:00)
[2020-07-11] MEDS: CEFTRIAXONE 1,000 MG in DEXTROSE 5% WATER 50 ML IV SCH (16:17)
[2020-07-11 16:54] LABS: PHOSPHORUS 2.7 mg/dL (2.5-4.9)
[2020-07-12] VITALS: BP 128/72
[2020-07-12 01:41] VITALS: BP 125/77
== END 2020-07-12 01:35 | DRG 720 ==
LOC: ER 21:02 → 7WST 23:47 → EDBEDREQ 23:52 → EDBEDREQTM 07-07 03:09 → EDBEDREQDT 07-07 03:09 → EDBEDREQSVC 07-07 03:09 → EDBEDREQTM 07-07 05:22 → ENRESERV 07-07 19:10
PROVIDERS: ADMIT Internal Medicine; ATTEND Internal Medicine
DX: A41.89 Other specified sepsis (principal); U07.1 COVID-19; E87.1 Hypo-osmolality and hyponatremia; D64.9 Anemia, unspecified; G35 Multiple sclerosis; I07.1 Rheumatic tricuspid insufficiency; I13.0 Hypertensive heart and chronic kidney disease with heart failure and stage 1 through stage 4 chronic kidney disease, or unspecified chronic kidney disease; N17.9 Acute kidney failure, unspecified; E11.22 Type 2 diabetes mellitus with diabetic chronic kidney disease; J96.00 Acute respiratory failure, unspecified whether with hypoxia or hypercapnia; I27.20 Pulmonary hypertension, unspecified; I50.22 Chronic systolic (congestive) heart failure; R74.01 Elevation of levels of liver transaminase levels; K21.9 Gastro-esophageal reflux disease without esophagitis; J12.89 Other viral pneumonia; Z96.611 Presence of right artificial shoulder joint; N18.9 Chronic kidney disease, unspecified; T84.028A Dislocation of other internal joint prosthesis, initial encounter; Y83.1 Surgical operation with implant of artificial internal device as the cause of abnormal reaction of the patient, or of later complication, without mention of misadventure at the time of the procedure; Y92.89 Other specified places as the place of occurrence of the external cause; Z87.01 Personal history of pneumonia (recurrent); Z86.14 Personal history of Methicillin resistant Staphylococcus aureus infection
CPT/HCPCS: 36415; 71045; 73030; 74018; 80048; 80053; 81003; 82533; 82962; 83605; 83735; 84100; 85025; 87635; 93005; 99285; C9113; J0456; J0696; J1200; J1650; J2405; J2765; J3475; J3490; J7030; J7060; A4315